=== PATIENT | male | born 1970 | race Caucasian/White ===

== ENCOUNTER 2024-07-02 07:37 | Outpatient (CLI) | payer BC, SELFPAY ==
--- NOTE | ~2024-07-02 | PE_ITS ---
EXAMINATION: PET_PETPSMAST_PT DATE: 07/02/2024 10:38 INDICATION: Gastric cancer TECHNIQUE: 5.583 mCi of Illucix Ga-68([id number]) was administered i.v. Low dose computed laxmi graphy (CT) images were acquired from the base of the brain to the base of the brain to the proximal thighs for attenuation correction and anatomic localization. Positron emission tomography (PET) image s were acquired in the same distribution beginning 83 minutes after injection. Images including fused PET/CT images were reconstructed in axial, coronal, and sagittal planes. Automated exposure control technique was employed. The dose-length product was 993.47mGy-cm. COMPARISON: None FINDINGS: Head/neck: Typical pattern of symmetric physiologic increased activity in the lacrimal, parotid glands as well a s along the mucosa of the nasal and oral cavities, pharynx and hypopharynx. Additional physiologic up take in the parotid glands, more prominent on the left than the right with the right parotid gland ap pearing smaller and with branching pattern of increased density which could relate to sialolithiasis. There are also symmetric small foci of mild uptake at the neural foramina C6-C7 and C7-T1 consistent with normal physiologic activity at the ganglia. No pathologically enlarged cervical lymphadenopathy or suspicious foci of increased uptake in the visualized head or neck. Chest: Calcified nodule at the lingula along with calcified mediastinal lymph nodes consistent with old gran ulomatous disease. No suspicious pulmonary nodules or pleural effusion. Heart size is normal. Atheros clerotic coronary artery calcific lesion. No pericardial effusion. Thoracic aorta is normal in calibe r. There is diffuse wall thickening along the mid to distal esophagus which can be seen with esophagi tis. No pathologically enlarged or PSMA avid thoracic lymphadenopathy. Abdomen/pelvis/proximal thighs: Physiologic renal accumulation and excretion of activity in the kidneys, bladder and along portions o f ureters. Mild prostatomegaly measuring 4.4 x 3.4 similar. There is a small focus of increased uptak e at the right posterior inferior aspect of the prostate with maximal SUV of 6.0 likely reflecting th e site of primary prostate cancer. Normal degree and slightly heterogenous pattern of increased uptak e throughout the liver and spleen without radiologic correlate or dominant PSMA avid lesion. Focal he patic steatosis along the gallbladder fossa. There are multiple splenic calcifications consistent wit h old granulomatous disease. The gallbladder, pancreas and bilateral adrenal glands are normal. Moder ate uptake scattered throughout the bowels with typical duodenal and proximal jejunal predominance an d without radiologic correlate, also likely physiologic. Normal appendix. No other abnormal foci of i ncreased uptake or pathologically enlarged lymphadenopathy in the abdomen, pelvis or proximal thighs. Musculoskeletal: There is likely extravasated activity along the right forearm. No suspicious lytic, blastic or abnorm ally PSMA avid bone lesions. IMPRESSION: 1. Small focus of mild increased uptake at the right posterior inferior aspect of the prostate consis tent with primary prostate cancer. No PSMA avid lesions suspicious for metastatic disease. Reviewed, dictated and finalized at location B. IMPRESSION: 1. Small focus of mild increased uptake at the right posterior inferior aspect of the prostate consistent with primary prostate cancer. No PSMA avid lesions s uspicious for metastatic disease.
--- OUTSIDE RECORDS SUMMARY | 2024-07-02 07:41 | XMS_ITS | Clinical Summary ---
Author Organization [facility] Address [address] 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 Active amLODIPine (NORVASC) 10 mg tablet Take 10 mg by mouth daily. Active irbesartan-hyd roCHLOROthiazi de (AVALIDE) 300-12.5 mg tablet Take 1 Tablet by mouth daily. Active pantoprazole (PROTONIX) 40 mg Tablet, Delayed Release (E.C.) Take 40 mg by mouth daily. Active cetirizine (ZyrTEC) 10 mg tablet Take 10 mg by mouth daily. Active methylPREDNISo lone (MEDROL DOSPACK) 4 mg Tablets, Dose Pack Take 4 mg by mouth see administration instructions. Active amoxicillin-cl avulanate (AUGMENTIN) 875-125 mg tablet Take 1 Tablet by mouth every 12 hours. Active Active Problems No known active problems Encounters Date Type Department Care Team Description 05/21/2024 External Device Data ST[facility] ABSTRACTION Provider, Abstract 05/14/2024 External Device Data ST[facility] ABSTRACTION Provider, Abstract 05/13/2024 External Device Data ST[facility] ABSTRACTION Provider, Abstract 05/10/2024 External Device Data ST[facility] ABSTRACTION Provider, Abstract 05/10/2024 External Device Data ST[facility] ABSTRACTION Provider, Abstract 04/29/2024 External Device Data STL ABSTRACTION Provider, Abstract 04/08/2024 External Device Data STL ABSTRACTION Provider, Abstract from Last 3 Months Social History Tobacco Use Types Packs/Day Years Used Date Smoking Tobacco: Every Day Cigarettes Smokeless Tobacco: Former Chew Alcohol Use Standard Drinks/Week Comments Yes 30 (1 standard drink = 0.6 oz pu re alcohol) 1 case of beer a week Sex and Gender Information Value Date Recorded Sex Assigned at Not on file Legal Sex Male 4:01 PM CDT Gender Identity Not on file Sexual Orientation Not on file Last Filed Vital Signs Vital Sign Reading Time Taken Comments Blood Pressure - - Pulse - - Temperature - - Respiratory Rate 16 12/31/2023 10:02 AM CDT Oxygen Saturation - - Inhaled Oxygen Concentration - - Weight 77.1 kg (170 lb) 12/31/2023 10:02 AM CDT Height 175.3 cm (5' 9 ) 12/31/2023 10:02 AM CDT Body Mass Index 25.1 12/31/2023 10:02 AM CDT Plan of Treatment Health Maintenance Due Date Last Done Comments Pre-Diabetes and Diabetes Screening 1970 DTAP/TDAP/TD VACCINES (1 - Tdap) 1988 HEPATITIS B VACCINES (1 of 3 - 19+ 3-dose series) 07/03 COLORECTAL SCREENING 2014 Colorectal Cancer Screening 2014 FIT-DNA Q 3 years 2014 FIT/FOBT Q 1 year 2014 Flex Sig/CT Colonography Q 5 years 2014 ZOSTER VACCINE (1 of 2) 07/13/2019 INFLUENZA VACCINE (#1) 2023 [place] [address] BCBS BLUE ACCESS/TRUE BLUE PPO
== END 2024-07-02 07:38 | disposition home or self-care (01) ==
PROVIDERS: PCP Family Medicine; Visit Provider Urology
DX: C61 Malignant neoplasm of prostate (principal); R97.20 Elevated prostate specific antigen [PSA]
CPT/HCPCS: 78815; A9596

== ENCOUNTER 2024-08-14 11:58 | Outpatient (CLI) | payer BC, SELFPAY ==
--- NOTE | 2024-08-14 12:37 | ECG_ITS ---
Test Date: 2024-08-14 12:53:50 Measurements Intervals [place] Rate: 92 P: 60 TX: 141 QRS: 28 QRSD: 104 T: 17 QT: 348 QTc: 431 Interpretive Statements SINUS RHYTHM DELAYED PRECORDIAL R/S TRANSITION CONSIDER INFERIOR INFARCT, AGE INDETERMINATE BASELINE ARTIFACT- I, II, III, AVL ABNORMAL ECG No previous ECG available for comparison Electronically Signed On 08-14-2024 12:57:50 CDT by Elan Mejias D.O.
--- OUTSIDE RECORDS SUMMARY | 2024-08-14 12:43 | XMS_ITS | Clinical Summary ---
Author Organization [facility] Address [address] 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
[2024-08-14 13:04] LABS: Basophils Percent Auto 0.3 % (0.2-1.2); Eosinophils Absolute Auto 0.1 K/mm3 (0-0.3); Eosinophils Percent Auto 0.6 % (0-4.4); Hemoglobin 15.3 g/dL (14.0-18.0); Immature Granulocyte Absolute 0.04 K/mm3 (0.00-0.031); Immature Granulocyte Percent A 0.5 % (0-0.5); Lymphocytes Absolute Auto 1.31 K/mm3 (0.9-3.2); Lymphocytes Percent Auto 16.9 % (18.3-44.2); Mean Corpuscular HGB Conc 34.8 g/dl (32-36); Mean Corpuscular Hemoglobin 32.3 pg (26-34); Mean Platelet Volume 10.2 fl (7.4-10.4); Monocytes Absolute Auto 0.7 K/mm3 (0.1-0.6); Monocytes Percent Auto 8.6 % (2.6-8.5); Neutrophils Absolute Auto 5.7 K/mm3 (1.3-6.7); Neutrophils Percent Auto 73.1 % (45.5-73.1); Platelet Count Result 269 k/mm3 (150-375); Red Blood Count 4.73 M/mm3 (4.6-6.20); Red Cell Distribution Width 11.7 % (11.5-14.5); White Blood Count 7.8 K/mm3 (4.5-10.0)
[2024-08-14 13:13] LABS: Alanine Aminotransferase 76 U/L (6-50); Albumin Level 4.7 g/dL (3.5-5.1); Alkaline Phosphatase 63 U/L (38-126); Anion Gap 8 mmol/L (4-12); Aspartate Amino Transferase 68 U/L (17-59); Bilirubin,Total 0.7 mg/dL (0.2-1.3); Blood Urea Nitrogen 9 mg/dL (9-20); Calcium 9.5 mg/dL (8.4-10.2); Carbon Dioxide 27 mmol/L (22-30); Chloride 98 mmol/L (98-107); Estimated Glomerular Filt Rate > 60; Glucose 115 mg/dL (65-110); Potassium 3.9 mmol/L (3.4-5.0); Sodium 133 mmol/L (137-145); Total Protein 7.7 g/dL (6.3-8.2)
[2024-08-14 13:22] LABS: Partial Thromboplastin Time 23.9 Seconds (22.3-36.8)
[2024-08-14 13:23] LABS: Prothrombin Time 12.7 Seconds (11.1-14.7)
== END 2024-08-14 11:59 | disposition home or self-care (01) ==
LOC: ANHSURGERY 12:01
PROVIDERS: PCP Family Medicine; Visit Provider Urology
DX: Z01.818 Encounter for other preprocedural examination (principal); C61 Malignant neoplasm of prostate; I10 Essential (primary) hypertension; R94.31 Abnormal electrocardiogram [ECG] [EKG]
CPT/HCPCS: 36415; 80053; 85025; 85610; 85730; 86850; 86900; 86901; 87086; 93005

== ENCOUNTER 2024-08-27 15:45 | Observation (INO) | payer BC, SELFPAY ==
[2024-08-14 12:16] VITALS: BP 124/87; PULSE 98; RESP 16; TEMP 37.3; O2SAT 98; BMI 25.0
--- NOTE | 2024-08-14 12:30 | PC.NURSE ---
Report to the Outpatient Waiting Room, entrance under the green pavilion located off [facility], at time ___0600am____ on date __08/26/24 . Planned Procedure Time: _0730am .? Time changes happen often and if your time is changed the preop area will call you the afternoon before. - You and your visitor will be asked to self-screen and do not enter if you have any COVID symptoms. Please call surgeon if you need to reschedule. - A mask is optional within the hospital at this time. Patients may have clear liquids (water, carbonated beverages, clear teas, apple juice) until 3 hours prior to surgery with a maximum of 20 ounces. - No food from midnight until time of surgery and no smoking, or chewing tobacco (or any form of nicotine). No chewing gum, candy or mints. (0430am) Take only the following medications with a SIP of water on the morning of surgery: ___Amlodipine and Metoprolol, tylenol if needed is ok DO NOT STOP ANY OF YOUR OTHER PRESCRIPTION MEDICATIONS PRIOR TO SURGERY EXCEPT THE FOLLOWING Hold all vitamins and supplements for 3 days per anesthesiologist. Medications to discontinue per physician None Date to take last dose None Please no make-up, nail danish, hairspray, perfume, deodorant, or body powder the day of surgery.? No jewelry (including any body piercings) or valuables the day of surgery, leave them at home.? Please take a shower or bath the night before, or the morning of, surgery with an antibacterial soap.? Wear comfortable, loose fitting clothing.? ( Gold DIAL Soap) Over Night, Cell phone/Cashier Courtesy Booth - Jewelry must be removed prior to entering the operating room.? Rings and piercings that are not removed may be cut off. - The hospital will not accept responsibility for valuables.? - Please leave all valuables, including medications, at home the day of surgery. If you are going home after surgery, a licensed caterpillar driver must drive you home.? - NO public transportation without another adult if you receive anesthesia. - We recommend that an adult stay with you for 24 hours following discharge. - We also recommend that you do not drive, make important decision, drink alcoholic beverages, or take any drugs that were not prescribed by your health care provider for at least 24 hours after your discharge time. Follow any additional instructions given to you from your surgeon. Telephone instructions given to __Patient and asked if any additional questions and then verbalized understanding. Patient advised to call surgeon office or pre surgery nurse liaison [phone] if any additional questions.
[2024-08-26] VITALS (12 sets, daily range): BP systolic 124–159; BP diastolic 80–108; PULSE 92–130; RESP 11–24; TEMP 36.4–37.2; O2SAT 94–100
[2024-08-26] MEDS: LACTATED RINGERS 1,000 ML 30 ML IV CONT ×2 (06:25→11:48)
--- NOTE | 2024-08-26 07:08 | P.PNAN_ITS ---
Anes - Initial Pre Proc Eval Procedure: Operation Date: 08/26/24 07:30 Proposed Procedures p Robotic Assisted Nerve Sparing Prostatectomy with Bilateral Pelvic Lymph Node Dissection - Daryl Armstrong MD Date/Time: 08/26/24 07:08 Surgeon: Daryl Armstrong MD Pre Op Diagnosis: prostate CA Patient Data Age: 54 Gender: M Height: 1.75 m Weight: 75.4 kg Last Vital Signs Temp 37.0 C 08/26/24 06:42 Pulse 98 08/26/24 06:42 Resp 16 08/26/24 06:42 BP 147/96 H 08/26/24 06:42 Pulse Ox 98 08/26/24 06:42 O2 Del Method Room Air 08/26/24 06:42 Allergies Allergy/AdvReac Type Severity Reaction Status Date / Time No Known Allergies Allergy Verified 08/26/24 06:38 Home Medications ?Medication ?Instructions ?Recorded ?Confirmed ?Type amlodipine 10 mg tablet 10 mg PO DAILY 08/14/24 08/26/24 History irbesartan 300 1 tablet PO DAILY 08/14/24 08/26/24 History mg-hydrochlorothiazide 12.5 mg tablet metoprolol succinate 50 mg 50 mg PO DAILY 08/14/24 08/26/24 History tablet,extended release 24 hr pantoprazole 40 mg tablet,delayed 40 mg PO DAILY 08/14/24 08/26/24 History release Patient hx anesthesia problems: none Family hx anesthesia problems: none Results Review: All pre-operative results and documents have been reviewed as part of the pre- operative evaluation. [facility] Social History Social History (Updated 08/26/24 @ 07:17 by Wilfredo Nickerson DO) Smoking packs per day: 1 Smoking cigarettes per day: 20.0 Years smoked: 25 Smoking pack-years: 25.00 Smoking status: Current every day smoker Tobacco type: cigarettes Drinks per week: 84 Alcohol use details: 12/day Substance use: never Living arrangements: alone Spiritual care concerns: No Anes - Eval Final PreProcedure Day of Procedure 08/26/24 07:08 Patient weight: normal Heart: regular rate and rhythm Lungs: clear to auscultation Airway: Mallampati scale class II Neurological: alert and oriented Last oral intake: >/= 8 hours ASA classification: III Emergent: no Anesthetic plan: proceed Anesthesia type and monitoring: general ETT and standard monitoring Results Review: All pre-operative results and documents have been reviewed as part of the pre- operative evaluation. Informed Consent: The patient's anesthetic plan and its attendant risks and benefits were discussed with the patient/family/POA. Questions were solicited and answers provided to the satisfaction of the patient/family/POA.
--- NOTE | 2024-08-26 07:12 | PM.IMHP ---
H&P: HPI History of Present Illness Date/Time: 08/26/24 07:12 Chief Complaint: Adenocarcinoma of prostate. Narrative: 54 yr old male with prostate cancer and psa of 13. [place] 4+3=7 in 11/12 cores. PSMA scan without metastatic disease. Here for robotic assist nerve sparing prostatectomy with possible PLND Review of Systems Review of Systems: All systems reviewed & are unremarkable except as noted in HPI and below PMFSH Social History Social History Smoking packs per day: 1 Smoking cigarettes per day: 20.0 Years smoked: 25 Smoking pack-years: 25.00 Smoking status: Current every day smoker Tobacco type: cigarettes Drinks per week: 21 Substance use: never Living arrangements: alone Spiritual care concerns: No Meds Home Medications and Allergies Home Medications ?Medication ?Instructions ?Recorded ?Confirmed ?Type amlodipine 10 mg tablet 10 mg PO DAILY 08/14/24 08/26/24 History irbesartan 300 1 tablet PO DAILY 08/14/24 08/26/24 History mg-hydrochlorothiazide 12.5 mg tablet metoprolol succinate 50 mg 50 mg PO DAILY 08/14/24 08/26/24 History tablet,extended release 24 hr pantoprazole 40 mg tablet,delayed 40 mg PO DAILY 08/14/24 08/26/24 History release Allergies Allergy/AdvReac Type Severity Reaction Status Date / Time No Known Allergies Allergy Verified 08/26/24 06:38 Vital Signs Vital Signs - 24 hr 08/26/24 06:42 Temperature 37.0 C Pulse Rate 98 Respiratory Rate 16 Blood Pressure 147/96 H Pulse Oximetry 98 Oxygen Delivery Room Air Exam Const: General: cooperative, comfortable and no acute distress Resp: Effort & Inspection: normal respiratory effort Cardio: Rate: regular rate Rhythm: regular rhythm Skin: General skin exam: normal color Assessment and Plan Assessment and plan (1) Adenocarcinoma of prostate: Code(s): C61 - Malignant neoplasm of prostate Status: Acute Assessment and Plan: Proceed with robotic assist nerve sparing prostatectomy with possible plnd.
--- NOTE | 2024-08-26 07:15 | WPDHPUPDATE1 ---
History and Physical Update Update Date/Time: 08/26/24 07:15 History and Physical has been reviewed, including an updated exam of the patient. There are NO changes in the patient's condition. Risks, benefits, and alternatives have been discussed and questions answered. Patient agrees to proceed with procedure.
[2024-08-26] MEDS: ceFAZolin 2 GM/D5W 50 ML 2 GM/50 ML BAG IVPB (07:26)
[2024-08-26] MEDS: BUPivacaine HCL 0.5% 10 ML AMP 30 ML INFILTRATE (09:57)
--- NOTE | 2024-08-26 11:04 | S_PTH ---
PATIENT: Gonsalo Ohara LOC: [id number] U#:[id number] AGE/SX: 54/M ROOM: 327 RE08/27/[address]: Daryl Armstrong, : 1970 BED: 01 DIS: 08/28/2024 SPEC #: [id number] RECD: 08/26/24 12:31 STATUS: TOBY RE #: [id number] ELADIO: 08/26/24 11:[address]: Patti,Daryl Eller DEPT: [facility] Surgical RECD BY: Nader Leach ENTERED: 08/26/24 12:31 SP TYPE: Surgical OTHR DR: Prakash Busby, Tissues: A - Prostate Procedures: P63 Hematoxylin and Eosin Stain Gross and Microscopic Level 6 AMACR(P504S)
[2024-08-26] MEDS: KETOROLAC 15 MG/ML VIAL (*BKC) IV PUSH (11:35)
--- NOTE | 2024-08-26 11:39 | W.PM.PROC2 ---
Procedure Note - Detailed Date of Procedure 08/26/24 Pre-op Diagnosis prostate CA Post-op Diagnosis Same Procedure Performed Robotic assisted nerve-sparing prostatectomy with bilateral pelvic lymph node dissection Surgeon Daryl Armstrong MD Anesthesia General Description of Procedure patient was taken to the operative suite correctly identified. Once anesthesia was obtained was placed in low-lying dorsal lithotomy position and prepped and draped usual sterile fashion. Supraumbilical incision was made and carried down to the rectus fascia. Veress needle was inserted and the abdomen insufflated to 15 mmHg pressure camera port was placed under direct vision. Working ports were placed. Patient was placed in a Trendelenburg position and the robot was docked. Attention was then given to the consult. Posterior approach was performed. He did have some adhesions of the sigmoid colon which were taken down. The posterior approach expose the seminal vesicles in their entirety. Vas is were transected. Plane between the prostate and rectum were developed. Bladder was then taken down in standard fashion. Endopelvic fascia was incised bilaterally. Puboprostatic support transected. Dorsal venous complex was isolated and ligated with an 0 Vicryl in secured to pubic bone. Bladder neck sparing was then performed. Posterior denied obviates was inside the seminal vesicles were exposed. Pedicles were clipped. Bilateral nerve-sparing was performed the standard fashion. Dorsal venous complex was then transected and oversewn with a V lock suture. The urethra was transected. Specimen was placed in Endo-Catch bag. Bilateral pelvic lymph node dissection were performed with the boundaries being the external iliac vein, obturator nerve, Figueroa's ligament, and bifurcation of the vessels. These were also placed in the Endo-Catch bag. The left node packet had a clip placed on it for identification. A Branden stitch was then placed using 0 Vicryl. The anastomosis was performed using V lock in a running fashion. There was good approximation of mucosa. Sixteen Italian Galan was inserted inflated with 10 cc. MICHELLE drain was placed through a separate stab incision. The robot was undocked. All lap count needle count sponge counts were correct. Fascia was closed using 0 Vicryl running fashion. Subcuticular stitches were placed. 1% lidocaine was used to anesthetize the skin. Patient was taken recovery stable condition. This completes dictation. Please send a copy of op note to my office Estimated Blood Loss 75 Drains Yes Pathology Yes Complications No immediate complications Condition Stable Disposition PACU
--- NOTE | 2024-08-26 12:04 | SUR.PHASEI ---
Patient used albuterol inhaler one puff at 1204.
[2024-08-26] MEDS: fentaNYL CITRATE INJ (*CRX) 100 MCG/2 ML VIAL 25 MCG IV PUSH ×4 (12:36→12:42)
--- NOTE | 2024-08-26 13:08 | ADMGEN ---
This patient, Gonsalo Ohara, was admitted to [address] [place] [address] Room 324-02 at 1300. Patient/family oriented to hospital policies and general routines including ID bracelet, bed and alarms, visiting hours, pain management, procedures, bathroom and other care routines, personal items, smoking policy, room service/diet, and visiting hours. Information on how to activate the Rapid Response Team has been discussed. Patient/Family are encouraged to report perceived risks to care and to ask questions if they do not understand what they are told or what they should do.
[2024-08-26] MEDS: LACTATED RINGERS 1,000 ML 125 ML IV CONT (13:44)
[2024-08-26] MEDS: HYDROcodone/acetaminophen (*CRX) 5-325 MG TABLET 2 TAB PO ×2 (16:20→22:38)
[2024-08-26] MEDS: DOCUSATE SODIUM 100 MG CAPSULE PO (16:22)
[2024-08-26] MEDS: oxyBUTYnin CHLORIDE 5 MG TABLET PO (16:22)
[2024-08-26] MEDS: KETOROLAC 30 MG/ML VIAL (*BKC) IV PUSH (16:22)
--- NOTE | 2024-08-26 16:26 | PHAR ---
Home med verified: Cetirizine 10mg OTC bottle
[2024-08-26] MEDS: CETIRIZINE 10 MG 10 EACH PO (16:43)
[2024-08-27 02:15] VITALS: BP 128/87; PULSE 76; RESP 16; TEMP 36.7; O2SAT 99
[2024-08-27] MEDS: HYDROcodone/acetaminophen (*CRX) 5-325 MG TABLET 2 TAB PO ×3 (05:51→23:33)
[2024-08-27 06:36] VITALS: BP 137/86; PULSE 76; RESP 12; TEMP 36.7; O2SAT 99
[2024-08-27 06:51] LABS: Hematocrit 36.6 % (42.0-52.0); Hemoglobin 12.2 g/dL (14.0-18.0)
[2024-08-27 07:04] LABS: Anion Gap 7 mmol/L (4-12); Blood Urea Nitrogen 8 mg/dL (9-20); Calcium 8.9 mg/dL (8.4-10.2); Carbon Dioxide 24 mmol/L (22-30); Chloride 100 mmol/L (98-107); Estimated CRCL calculation 82 ml/min; Estimated Glomerular Filt Rate > 60; Glucose 111 mg/dL (65-110); Potassium 3.8 mmol/L (3.4-5.0); Sodium 131 mmol/L (137-145)
--- NOTE | 2024-08-27 07:56 | P.PNUR_ITS ---
Progress Note: A&P Assessment and Plan (1) Adenocarcinoma of prostate: Code(s): C61 - Malignant neoplasm of prostate Status: Acute Assessment and Plan: Overall doing well. Still with some gas pains. Will increase activity this morning. Evaluate MICHELLE output. Possible discharge later today or in a.m.. Subjective Subjective Date/Time Seen: 08/27/24 07:56 Post Op day: 1 (Robotic assisted nerve-sparing prostatectomy with bilateral pelvic lymph node dissection) Principal diagnosis: Adenocarcinoma prostate Interval history: Doing well overall. Had some perirectal pressure last night which has resolved. He is now having some gas pains as he describes it. He is passing flatus. Review of Systems Review of Systems: All systems reviewed & are unremarkable except as noted in HPI and below Exam Const: General: cooperative and no acute distress Resp: Effort & Inspection: normal respiratory effort Cardio: Rate: regular rate Rhythm: regular rhythm GI: GI Palp: Yes Firmness to palpation present (GI) Objective Data Vital Signs Vital Signs: Vital Signs - 24 hr 08/26/24 11:48 08/26/24 12:00 08/26/24 12:15 Temperature 37.2 C Pulse Rate 97 111 H 123 H Respiratory Rate 11 L 17 24 H Blood Pressure 144/101 H 137/108 H 151/100 H Pulse Oximetry 99 99 97 Oxygen Delivery Simple Face Mask Simple Face Mask Room Air Oxygen Flow Rate 8 8 08/26/24 12:30 08/26/24 12:45 08/26/24 13:19 Temperature 36.8 C Pulse Rate 116 H 112 H 115 H Respiratory Rate 16 13 22 H Blood Pressure 139/98 H 131/105 H 138/93 H Pulse Oximetry 96 94 98 Oxygen Delivery Room Air Room Air Oxygen Flow Rate 08/26/24 13:19 08/26/24 13:26 08/26/24 13:30 Temperature 36.8 C 36.4 C L Pulse Rate 115 H 130 H Respiratory Rate 22 H Blood Pressure 135/95 H Pulse Oximetry 98 100 96 Oxygen Delivery Room Air Oxygen Flow Rate 08/26/24 14:25 08/26/24 18:11 08/26/24 21:38 Temperature 36.6 C Pulse Rate 121 H 99 92 Respiratory Rate 18 18 16 Blood Pressure 124/80 159/89 H 150/90 H Pulse Oximetry 98 100 100 Oxygen Delivery Oxygen Flow Rate 08/27/24 02:15 08/27/24 06:36 Temperature 36.7 C 36.7 C Pulse Rate 76 76 Respiratory Rate 16 12 Blood Pressure 128/87 137/86 Pulse Oximetry 99 99 Oxygen Delivery Oxygen Flow Rate Intake/Output Intake/Output: Intake & Output 08/24/24 08/25/24 08/26/24 08/27/24 23:59 23:59 23:59 23:59 Intake Total 540 150 Output Total 785 1200 Balance -245 -1050 Meds/Results Medications: Active Medications Generic Name Dose Route Start Last Admin Trade Name Freq PRN Reason Stop Dose Admin Hydrocodone Bitart/Acetaminophen 2 tab 08/26/24 12:51 08/27/24 05:51 Hydrocodone/Acetaminophen (*Crx) 5-325 Mg Tablet PO 2 tab Q6H PRN Administration Pain Rated 4-6 Amlodipine Besylate 10 mg 08/27/24 09:00 Amlodipine Besylate 10 Mg Tablet PO DAILY BRADY Docusate Sodium 100 mg 08/26/24 17:00 08/26/24 16:22 Docusate Sodium 100 Mg Capsule PO 100 mg BID BRADY Administration Hydrochlorothiazide 12.5 mg 08/27/24 09:00 Hydrochlorothiazide 12.5 Mg Capsule PO QAM BRADY Hyoscyamine 0.125 mg 08/26/24 12:51 Hyoscyamine Sulfate 0.125 Mg Tablet SUBLINGUAL Q4H PRN Bladder Spasm Irbesartan 300 mg 08/27/24 09:00 Irbesartan 150 Mg Tablet PO QAM [facility] Ketorolac Tromethamine 30 mg 08/26/24 12:51 08/26/24 16:22 Ketorolac 30 Mg/Ml Vial (*Bkc) IV PUSH 08/27/24 12:50 30 mg Q6H PRN Administration Pain Rated 4-6 Levofloxacin 500 mg 08/27/24 09:00 Levofloxacin 500 Mg Tablet PO DAILY [facility] Morphine Sulfate 1 mg 08/26/24 12:51 Morphine Sulfate (*Crx) 2 Mg/Ml Inj IV PUSH Q2H PRN Pain Rated 7-10 Naloxone HCl 0.1 mg 08/26/24 12:51 Naloxone Hcl 0.4 Mg/Ml Vial IV PUSH Q2M PRN Opiate Reversal Cetirizine 10 Mg 10 mg 08/26/24 19:00 08/26/24 16:43 Home Med Take 1 PO 09/25/24 18:59 10 mg Tablet Po Qpm 1900 [facility] Administration Ondansetron HCl 4 mg 08/26/24 12:51 Ondansetron Inj 4 Mg/2 Ml Vial IV PUSH Q6H PRN Nausea And Vomiting Oxybutynin Chloride 5 mg 08/26/24 15:06 08/26/24 16:22 Oxybutynin Chloride 5 Mg Tablet PO 5 mg BID PRN Administration Bladder Spasm Pantoprazole Sodium 40 mg 08/27/24 09:00 [facility]oprazole [facility] [facility]: Laboratory Results - last 24 hr 08/27/24 06:26 Hgb 12.2 L D Hct 36.6 L Sodium 131 L Potassium 3.8 Chloride 100 Carbon Dioxide 24 Anion Gap 7 BUN 8 L Creatinine 0.89 Estim Creat Clear Calc 82 Estimated GFR > 60 Glucose 111 H Calcium 8.9
[2024-08-27] MEDS: levoFLOXacin 500 MG TABLET PO (08:28)
[2024-08-27] MEDS: amLODIPine BESYLATE 10 MG TABLET PO (08:28)
[2024-08-27] MEDS: IRBESARTAN 150 MG TABLET 300 MG PO (08:28)
[2024-08-27] MEDS: DOCUSATE SODIUM 100 MG CAPSULE PO ×2 (08:28→16:52)
[2024-08-27] MEDS: hydroCHLOROthiazide 12.5 MG CAPSULE PO (08:29)
[2024-08-27] MEDS: PANTOPRAZOLE 40 MG TABLET PO (08:29)
[2024-08-27 10:15] VITALS: BP 137/80; PULSE 86; RESP 20; TEMP 36.4; O2SAT 99
[2024-08-27 13:53] VITALS: BP 120/71; PULSE 80; RESP 16; TEMP 36.6; O2SAT 99
[2024-08-27] MEDS: CETIRIZINE 10 MG 10 EACH PO (18:29)
[2024-08-27 20:00] VITALS: PULSE 91; RESP 14; O2SAT 97
[2024-08-27 21:24] VITALS: BP 158/85; PULSE 91; RESP 14; TEMP 36.8; O2SAT 97
[2024-08-28] MEDS: HYOSCYAMINE SULFATE 0.125 MG TABLET SUBLINGUAL (01:12)
[2024-08-28] MEDS: oxyBUTYnin CHLORIDE 5 MG TABLET PO ×2 (01:13→13:17)
[2024-08-28 05:18] VITALS: BP 132/82; PULSE 71; RESP 16; TEMP 36.7; O2SAT 96
[2024-08-28] MEDS: HYDROcodone/acetaminophen (*CRX) 5-325 MG TABLET 2 TAB PO (07:59)
[2024-08-28 08:01] VITALS: BP 140/82; PULSE 67; RESP 16; TEMP 36.4; O2SAT 99
[2024-08-28 08:02] VITALS: PULSE 67; RESP 16; O2SAT 99
[2024-08-28] MEDS: DOCUSATE SODIUM 100 MG CAPSULE PO (08:02)
[2024-08-28] MEDS: PANTOPRAZOLE 40 MG TABLET PO (08:02)
[2024-08-28] MEDS: amLODIPine BESYLATE 10 MG TABLET PO (08:02)
[2024-08-28] MEDS: hydroCHLOROthiazide 12.5 MG CAPSULE PO (08:02)
[2024-08-28] MEDS: levoFLOXacin 500 MG TABLET PO (08:03)
[2024-08-28] MEDS: IRBESARTAN 150 MG TABLET 300 MG PO (08:03)
[2024-08-28 14:00] VITALS: BP 112/72; PULSE 85; RESP 16; TEMP 36.1; O2SAT 98
--- NOTE | 2024-08-28 16:17 | PM.DS ---
DS: Admitting Diagnosis Discharge Date 08/28/2024 Admitting Diagnosis Prostate Cancer DS: Discharge Diagnosis Discharge Diagnosis (1) Adenocarcinoma of prostate: Code(s): C61 - Malignant neoplasm of prostate Status: Acute Plan 54y old male POD 2 Robotic assisted nerve-sparing prostatectomy with bilateral pelvic lymph node dissection -Keep follow up appointment for september 04 for Voiding trial and martinez removal. -Discharge home with Martinez -Follow restrictions discussed with our team. DS: Summary Hospital Course Hospital Course: Robotic assisted nerve-sparing prostatectomy with bilateral pelvic lymph node dissection 07/26/2024 -no complications -MICHELLE drain removed today Status at Discharge Cognitive/behavioral status at discharge: appropriate Functional status at discharge: independent ambulation Exam Narrative: alert and oriented x3. comfortable. abdominal incisions CDI 4x4 and tegaderm over MICHELLE insertion site CDI Martinez in place draining clear yellow urine. DS: Data Data Completed and Pending Pending studies at discharge: Pending at discharge 08/26/24 11:04 Surgical [PTH] Routine Discharge Plan Discharge Attending physician on discharge: Daryl Armstrong Discharging Clinician: Sruthi Coe Patient Disposition: Home Activity: no straining and pelvic rest Diet: as tolerated Wound Care Instructions: keep dressing dry and incision open to air Patient Instructions: Antibiotic Form Patient Language: Italian Stand Alone Forms: General Discharge Information Follow-up/Referrals: Daryl Amrstrong MD [Physician] - (follow up september 04 with MICHELLE Coe) Discharge Medications: New docusate sodium [Dulcolax Stool Softener (dss)] 100 mg capsule 100 mg PO BID 7 Days Qty: 14 0RF oxybutynin chloride 5 mg Tablet 5 mg PO BID PRN (Reason: Bladder Spasm) 7 Days Qty: 14 0RF sulfamethoxazole-trimethoprim [Bactrim DS] 800-160 mg tablet 1 tablet PO DAILY 7 Days Qty: 7 0RF Continued amlodipine 10 mg tablet 10 mg PO DAILY irbesartan-hydrochlorothiazide 300-12.5 mg tablet 1 tablet PO DAILY metoprolol succinate 50 mg tablet extended release 24 hr 50 mg PO DAILY pantoprazole 40 mg tablet,delayed release (DR/EC) 40 mg PO DAILY Date of admission: 08/27/24 15:45 Primary Care Provider: QiPrakash Admitting Provider: Daryl Armstrong Attending physician on admission: Daryl Armstrong Condition: Stable
== END 2024-08-28 18:00 | disposition home or self-care (01) ==
LOC: ANHSURGERY 15:48 → ANH3MEDSUR 15:48
PROVIDERS: Admitting Provider Urology; PCP Family Medicine; Visit Provider Urology
PROC: 0VT04ZZ Resection of Prostate, Percutaneous Endoscopic Approach (ICD-10-PCS; CPT 55867; principal; 2024-08-26 07:30)
DX: C61 Malignant neoplasm of prostate (principal); F17.210 Nicotine dependence, cigarettes, uncomplicated; Z79.899 Other long term (current) drug therapy
CPT/HCPCS: 55866; 38571; S2900; 36415; 80048; 85014; 85018; 88309; 88342; A9270; G0378; J0690; J1100; J1171; J1885; J2003; J2250; J2405; J2704; J3010; J7030; J7120

== ENCOUNTER 2024-09-04 11:24 | Outpatient (CLI) | payer BC, SELFPAY ==
--- NOTE | ~2024-09-04 | XR_ITS ---
EXAMINATION: CYSTOGRAM DATE: 09/04/2024 12:28 INDICATION: Postoperative evaluation TECHNIQUE: Initial gluer machine setup operator radiograph of the pelvis was performed. There was retrograde administration of Omnipaque 350 mixed with saline contrast into patient's existing Galan catheter, until patient wa s unable to tolerate further instillation. Fluoroscopic images of the pelvis were obtained. No post-v oid image was performed. Fluoroscopy exposure time was 0.7 minutes. FINDINGS: No extravasation of contrast was visualized after instillation of 100 cc of Omnipaque 350 IMPRESSION: No extravasation of intravenous contrast is appreciated. DAP: 18.9 jose centimeters squared Total images: 7 Reviewed, dictated and finalized at location A.
--- OUTSIDE RECORDS SUMMARY | 2024-09-04 11:29 | XMS_ITS | Clinical Summary ---
Author Organization [facility] Address [address] [facility] [place] [address] Phone Care Team Providers Care Weed Control Inspector Name Role Phone Unavailable Primary Care Provider [...] Encounters Date Type Department Care Team Description 08/26/2024 External Device Data [facility] ABSTRACTION Provider, Abstract 07/24/2024 External Device Data STL ABSTRACTION Provider, [...] 2) 07/13/2019 INFLUENZA VACCINE (#1) [address] BLUE ACCESS/TRUE BLUE PPO
== END 2024-09-04 11:25 | disposition home or self-care (01) ==
PROVIDERS: PCP Family Medicine; Visit Provider Urology
DX: C61 Malignant neoplasm of prostate (principal)
CPT/HCPCS: 51600; 74430; Q9967